=== PATIENT | male | born 1960 | race Caucasian/White ===

== ENCOUNTER 2023-11-14 05:58 | Emergency (ER) | payer MEDICAID ==
[~2023-11-14] VITALS: Ht 167.6 cm; Wt 65.0 kg
[2023-11-14 06:02] VITALS: O2SAT 97
[2023-11-14 08:31] LABS: BASOPHILS % 0.6 % (0.0-2.0); EOSINOPHILS % 0.1 % (0.0-5.0); HEMATOCRIT. 36.1 % (42.0-52.0); HEMOGLOBIN. 11.5 g/dL (14.0-18.0); LYMPHOCYTES % 11.1 % (20.0-50.0); MEAN CORPUSCULAR HEMOGLOBIN 30.6 pg (28.0-32.0); MEAN CORPUSCULAR VOLUME 95.8 fL (80.0-94.0); MEAN PLATELET VOLUME 8.7 fl (7.4-10.4); MONOCYTES % 7.5 % (2.0-8.0); NEUTROPHILS % 80.7 % (40.0-76.0); PLATELET 305 x1000/uL (130-400); RED BLOOD CELL COUNT 3.76 mill/uL (4.7-6.1); RED CELL DISTRIBUTION WIDTH 16.7 % (11.6-14.6); WHITE BLOOD COUNT 12.1 x1000/uL (4.5-11.0)
[2023-11-14 08:42] LABS: CHLORIDE 103 mEq/L (98-107); POTASSIUM 4.6 mEq/L (3.5-5.1); SODIUM 134 mEq/L (136-145)
[2023-11-14 08:43] LABS: CARBON DIOXIDE 28 mEq/L (21-32)
[2023-11-14 08:44] LABS: CALCIUM 8.7 mg/dL (8.7-10.4)
[2023-11-14 08:48] LABS: CREATININE 0.7 mg/dL (0.6-1.3); GLUCOSE 107 mg/dL (70-105)
[2023-11-14 08:49] LABS: UREA NITROGEN BLOOD 13 mg/dL (9-23)
[2023-11-14 08:50] LABS: ALANINE AMINOTRANSFERASE 73 IU/L (10-49); ALBUMIN 3.1 g/dL (3.2-4.8); AMMONIA 17 uMol/L (<32); ASPARTATE AMINOTRANSFERASE 94 IU/L (<34)
[2023-11-14 08:51] LABS: PROTEIN TOTAL 7.1 g/dL (6.0-8.3)
[2023-11-14] MEDS: MORPHINE SULFATE 4 MG/ML INJ (FOR IV/IM USE) IV NR (11:13)
[2023-11-14 12:34] LABS: INR 1.2; PROTHROMBIN TIME 12.7 sec (9.6-11.0)
[2023-11-14 15:47] VITALS: BP 111/76; PULSE 98; RESP 17; TEMP 36.55848; O2SAT 98
== END 2023-11-14 15:29 | disposition short-term general hospital (02) ==
LOC: ER 05:58
DX: C80.1 Malignant (primary) neoplasm, unspecified (principal); C78.7 Secondary malignant neoplasm of liver and intrahepatic bile duct; T85.520A Displacement of bile duct prosthesis, initial encounter; Z88.0 Allergy status to penicillin
CPT/HCPCS: 99285; 74176; 96374; 80053; 82140; 85025; 85610; 36415; 74018; J2270